=== PATIENT | male | born 1985 | race Caucasian/White ===

== ENCOUNTER 2024-06-16 09:35 | Emergency (ER) | payer OTHER ==
[2024-06-16 09:41] VITALS: TEMP 98.1; BMI 25.8
[2024-06-16 10:00] LABS: HEMATOCRIT 48.1 % (35.4-49); HEMOGLOBIN 16.6 G/dL (11.7-16.9); MCH 30.9 pg (25.7-33.7); MCHC 34.6 g/dl (32.0-35.9); MEAN CELL VOLUME 89.3 fl (80-96); MEAN PLT VOLUME 8.4 fl (7.5-11.1); PLATELET COUNT 234.1 10^3/uL (134-434); RBC 5.39 10^6/uL (4.00-5.60); WHITE BLOOD COUNT 5.6 10^3/uL (4.0-10.8)
[2024-06-16 10:14] LABS: INR 1.19 (0.83-1.09); PROTHROMBIN TIME (PATIENT) 13.5 SEC (9.7-13.0)
[2024-06-16 10:17] LABS: ACTIVATED PTT 29.4 SECONDS (25.2-36.5)
[2024-06-16 10:24] LABS: ALBUMIN 4.3 g/dl (3.4-5.0); BILIRUBIN,TOTAL 1.9 mg/dl (0.2-1); CALCIUM 9.7 mg/dl (8.5-10.1); CREATININE 1.1 mg/dl (0.6-1.3); POTASSIUM 3.4 mmol/L (3.5-5.1); TOT PROT 6.4 g/dl (6.4-8.2)
[2024-06-16 11:42] VITALS: BP 128/79; PULSE 87; RESP 16
[2024-06-16] MEDS: morphine SULFATE 4 MG/ML VIAL IVPUSH ONE (12:02)
[2024-06-16 12:49] LABS: HIV INTERPRETATION NEGATIVE (NEGATIVE)
== END 2024-06-16 12:00 | disposition home or self-care (01) ==
LOC: FER 09:35
DX: K42.9 Umbilical hernia without obstruction or gangrene (principal); R10.33 Periumbilical pain
CPT/HCPCS: 36415; 80053; 85025; 85610; 85730; 86803; 86850; 86900; 86901; 87389; 99283-25